=== PATIENT | female | born 1975 | race Asian ===

== ENCOUNTER 2025-02-06 22:15 | Emergency (ER) | payer BC ==
[~2025-02-06] VITALS: Ht 165.1 cm; Wt 68.0 kg
[2025-02-06 22:57] VITALS: BP 117/66; TEMP 99.6; O2SAT 99
== END 2025-02-06 23:16 | disposition home or self-care (01) ==
LOC: ER 22:17
DX: J11.1 Influenza due to unidentified influenza virus with other respiratory manifestations (principal)